=== PATIENT | male | born 1940 | race Caucasian/White ===

== ENCOUNTER → 2017-01-19 | Outpatient (CLI) | payer MEDICARE, OTHER ==
[2017-01-19 09:28] LABS: HEMATOCRIT 44.3 % (39.0-51.0); MEAN CELL VOLUME 92.3 FL (80.0-100.0); MEAN CORPUSCULAR HEMOGLOBIN 31.7 PG (27.0-34.0); MEAN CORPUSCULAR HGB CONC 34.3 % (32.0-36.0); PLATELET COUNT 155 TH/MM3 (150-450); RED BLOOD COUNT 4.81 MIL/MM3 (4.50-5.90); RED CELL DISTRIBUTION WIDTH 12.7 % (11.6-17.2); REVIEW FLAG FINAL
[2017-01-19 10:27] LABS: ALKALINE PHOSPHATASE 52 U/L (45-117); ALT (GPT) 31 U/L (12-78); ANION GAP 8 MEQ/L (5-15); AST (GOT) 21 U/L (15-37); BICARBONATE 28.1 MEQ/L (21.0-32.0); BLOOD UREA NITROGEN 16 MG/DL (7-18); CHLORIDE 105 MEQ/L (98-107); GLOMERULAR FILTRATION RATE 53 ML/MIN (>89); GLUCOSE,FASTING 100 MG/DL (74-99); HDL CHOLESTEROL 46.4 MG/DL (40.0-60.0); LDL CHOLESTEROL 48 MG/DL (0-99); LDL CHOLESTEROL DIRECT 65 MG/DL (0-99); POTASSIUM 4.7 MEQ/L (3.5-5.1); SODIUM (NA) 141 MEQ/L (136-145); TOTAL BILIRUBIN ADULT 0.5 MG/DL (0.2-1.0)
== END ==
LOC: PLAB 07:28
PROVIDERS: ATTEND Family Medicine
DX: I25.10 Atherosclerotic heart disease of native coronary artery without angina pectoris (principal); E78.2 Mixed hyperlipidemia; I10 Essential (primary) hypertension
CPT/HCPCS: 36415; 80053; 80061; 83721; 85027

== ENCOUNTER → 2017-07-22 | Outpatient (CLI) | payer MEDICARE, OTHER ==
[2017-07-22 11:01] LABS: HEMATOCRIT 44.7 % (39.0-51.0); MEAN CELL VOLUME 94.5 FL (80.0-100.0); MEAN CORPUSCULAR HEMOGLOBIN 32.3 PG (27.0-34.0); MEAN CORPUSCULAR HGB CONC 34.1 % (32.0-36.0); PLATELET COUNT 162 TH/MM3 (150-450); RED BLOOD COUNT 4.73 MIL/MM3 (4.50-5.90); RED CELL DISTRIBUTION WIDTH 12.6 % (11.6-17.2); REVIEW FLAG FINAL; WHITE BLOOD COUNT 6.1 TH/MM3 (4.0-11.0)
[2017-07-22 11:22] LABS: ANION GAP 4 MEQ/L (5-15); AST (GOT) 24 U/L (15-37); BICARBONATE 29.7 MEQ/L (21.0-32.0); BLOOD UREA NITROGEN 12 MG/DL (7-18); CHLORIDE 105 MEQ/L (98-107); GLOMERULAR FILTRATION RATE 62 ML/MIN (>89); GLUCOSE,FASTING 101 MG/DL (74-99); POTASSIUM 4.4 MEQ/L (3.5-5.1); SODIUM (NA) 139 MEQ/L (136-145)
[2017-07-22 11:34] LABS: ALKALINE PHOSPHATASE 51 U/L (45-117); ALT (GPT) 35 U/L (12-78); HDL CHOLESTEROL 54.6 MG/DL (40.0-60.0); LDL CHOLESTEROL 51 MG/DL (0-99); LDL CHOLESTEROL DIRECT 71 MG/DL (0-99); TOTAL BILIRUBIN ADULT 0.7 MG/DL (0.2-1.0)
[2017-07-22 16:15] LABS: HEMOGLOBIN A1b 0.8 %; HEMOGLOBIN Ao 85.8 %; HEMOGLOBIN LA1C 2.1 %; HEMOGLOBIN P3 3.4 %
== END ==
LOC: PLAB 07:49
PROVIDERS: ATTEND Family Medicine
DX: I25.10 Atherosclerotic heart disease of native coronary artery without angina pectoris (principal); E78.2 Mixed hyperlipidemia; I10 Essential (primary) hypertension; R73.01 Impaired fasting glucose
CPT/HCPCS: 36415; 80053; 80061; 83036; 83721; 85027

== ENCOUNTER → 2017-08-30 | Outpatient (CLI) | payer MEDICARE, OTHER ==
[~2017-08-30] MED LIST: ASPI81TA23 PO; LATA0.002 EACH EYE; MULTTAB67 PO; OCUVTAB4 PO; OMEG100046 PO; TIMO0.5S30 EACH EYE; ZOCO20TA PO
--- NOTE | 2017-08-31 14:29 | EKG ---
Date Performed: 08/30/2017 Time Performed: 11:36:39 PTAGE: 77 years EKG: Sinus rhythm NORMAL ECG NO PREVIOUS TRACING DOCTOR: Alejandra Redman Interpretating Date/Time 08/31/2017 14:25:20
== END ==
LOC: PHPRE 11:11
PROVIDERS: ATTEND Ophthalmology
DX: Z01.810 Encounter for preprocedural cardiovascular examination (principal)
CPT/HCPCS: 93005

== ENCOUNTER → 2017-09-06 | Outpatient (CLI) | payer MEDICARE, OTHER ==
--- NOTE | 2017-08-31 08:03 | MH ---
cc: HENNY PETERS M.D. [facility], DATE OF ADMISSION: 09/06/2017 ADMISSION DIAGNOSIS Cataract, left eye. HISTORY OF PRESENT ILLNESS This 77-year-old white male is coming through [facility] for the purpose of a lens extraction of the left eye with intraocular lens implant under local anesthesia. He has noticed decreasing visual acuity interfering with his daily activities and elected to have the above procedure. He also has a history of macular degeneration. His best-corrected visual acuity is 20/25 -2/+1 in the right eye and 20/100 -1 in the left eye. PAST MEDICAL HISTORY The patient does have the macular degeneration mentioned above. There is an atrophic area in the macula area of the left eye so we are not sure exactly how much help he will get with the cataract surgery but he is aware of this and would like to get as much as he can. He also has a history of cholesterol problems. PAST SURGICAL HISTORY 1. Colonoscopy. 2. Dental surgery. 3. Vasectomy. MEDICATIONS Daily medications include: 1. Ocuvite with lutein. 2. Zocor. 3. Baby aspirin. 4. Multivitamin. 5. Cinnamon. 6. Fish oil. 7. There is a history of the use of Flomax in the past. 8. Timoptic 0.5% eye drops once a day. 9. Latanoprost eye drops in each eye at bedtime. ALLERGIES The patient is allergic to SULFA. SOCIAL HISTORY He stopped smoking in 1987 and drinks a glass of wine or beer per day. FAMILY HISTORY Positive for parents with cataract and brother with glaucoma. REVIEW OF SYSTEMS HEAD: Patient denies severe headaches, dizziness or recent head injury. EARS: The patient has age-related hearing loss and tinnitus. Patient denies ear pain or discharge. NOSE: Patient denies nasal discharge, obstruction or frequent colds. MOUTH AND THROAT: Patient denies soreness of the mouth or tongue, bleeding gums, trouble swallowing, changes in voice or sore throat. NECK: Patient denies neck pain or swelling, limitation of neck movement or neck injury. CARDIOPULMONARY SYSTEM: Patient denies shortness of breath, orthopnea, chronic cough, sputum production, hemoptysis, chest pain, wheezing, palpitations or light-headedness. GI SYSTEM: Patient denies poor appetite, nausea, vomiting, abdominal pain, ulcers, hemorrhoids or change in bowel habits. SYSTEM: The patient has urinary frequency day and night due to prostate problems. Patient denies dysuria or change in urine color. NERVOUS SYSTEM: Patient denies convulsions, vertigo, stroke, numbness or weakness. PHYSICAL EXAMINATION VITAL SIGNS: Blood pressure 128/78, pulse 64, respirations 20. HEAD: Normocephalic, atraumatic. NOSE: Without rhinorrhea. THROAT: Clear. NECK: Supple. CHEST: Clear. HEART: Regular rhythm. ABDOMEN: Without tenderness. EXTREMITIES: Without edema. NEUROLOGIC: Within normal limits. MENTAL STATUS: Within normal limits. EYE EXAM: The patient's best-corrected visual acuity with correction is 20/25 -2/+1 in the right eye and 20/100 -1 in the left eye. Visual nam are full to confrontation testing. Extraocular muscle exam reveals full versions with orthophoria at distance and near. Pupils are 3 mm, equal, round, and reactive to light without afferent defect. Anterior segment examination reveals nuclear sclerotic and posterior subcapsular cataract in the left eye and nuclear sclerotic cataract in the right. Intraocular pressure is 18 in the right eye and 20.5 in the left by applanation tonometry. Dilated fundus exam revealed sharp disks with cup-to-disk ratio 0.3 in the right eye and 0.4 in the left. There are retinal pigment epithelial changes greater in the left eye than the right in the macula and a posterior vitreous detachment is present bilaterally. IMPRESSION 1. Bilateral cataracts. 2. Posterior vitreous detachment, both eyes. 3. Macular degeneration, left eye greater than right. 4. Glaucoma suspect, high-risk on medications. PLAN Lens extraction of the left eye with intraocular lens implant under local anesthesia through [facility]. 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 The patient has been cleared medically. He has been counseled as to the risks, benefits and alternatives and elected to proceed. I feel that cataract surgery will improve the quality of life and activities of daily living in this patient. Henny Peters MD [employer] RECEIVING/SUNNI /7:20 AM 7:41 AM
[~2017-09-06] VITALS: Ht 177.8 cm; Wt 79.5 kg
[~2017-09-06] MED LIST changes: +ACETYLCHOLINE CHL OPHT SOLN 1:100 2 ML VIAL ONE; +CHLORHEXIDINE GLUCONATE 2 % 1 PACK (2 CLOTHS) TOPICAL PRN; +EPINEPHrine HCL PF/SF (1:1000) 1 MG/ML AMP I-OCULAR ONE; +HYALURONIDASE/LIDOCAINE/BUPIVACAINE 5 ML SYR LEFT EYE ONE; +LACTATED RINGER'S 1000 ML IV PRN; +LIDOCAINE HCL 2% PF 5 ML VIAL ONE; +METOPROLOL TARTRATE 25 MG TAB PO PRN; +PILOCARPINE HCL 2% OPHT SOLN 15 ML BTL ONE; +POVIDONE IODINE 5% (ANTISEPSIS KIT) 4 APPLICATIONS EACH NARE PRN; +PROPARACAINE HCL 0.5% OPHT SOLN 15 ML BTL LEFT EYE ONE; +PROPOFOL 200 MG/20 ML AMP ONE; +SODIUM CHLORID 0.9% 500 ML IV PRN; +TOBRAMYCIN/DEXAMETHASONE OPTH OINT 3.5 GM TUBE ONE; +VISCOAT OPHT IRRIG SOLN 0.75 ML SYRINGE ONE
[2017-09-06 09:32] VITALS: PULSE 65
[2017-09-06] MEDS: CYCLOPENTOLATE HCL 1% OPHT SOLN 2 ML BTL LEFT EYE SCH ×4 (09:35→09:44)
[2017-09-06] MEDS: GATIFLOXACIN 0.5% OPHT SOLN 2.5 ML BTL LEFT EYE SCH ×4 (09:35→09:44)
[2017-09-06] MEDS: DICLOFENAC SOD 0.1% OPHT SOLN 2.5 ML BTL LEFT EYE SCH ×4 (09:35→09:44)
[2017-09-06] MEDS: PHENYLEPHRINE HCL 2.5% OPTH SOLN 2 ML BTL LEFT EYE SCH ×4 (09:35→09:44)
[2017-09-06] MEDS: TROPICAMIDE 1% OPHT SOLN 15 ML BTL LEFT EYE SCH ×4 (09:35→09:44)
[2017-09-06 10:29] VITALS: PULSE 66
[2017-09-06 12:55] VITALS: TEMP 98
[2017-09-06 13:15] VITALS: BP 176/93; PULSE 71; RESP 16; O2SAT 100
--- NOTE | 2017-09-06 13:31 | MP ---
cc: HENNY PETERS DATE OF SURGERY: September 06, 2017 PREOPERATIVE DIAGNOSIS: Cataract left eye. POSTOPERATIVE DIAGNOSIS: Cataract left eye. OPERATION: Extracapsular cataract extraction with posterior chamber intraocular lens implant by phacoemulsification, left eye. SURGEON: Henny Peters M.D. ANESTHESIA: Local. COMPLICATIONS: None. INDICATIONS: See history and physical previously dictated. OPERATIVE PROCEDURE: The patient had adequate retrobulbar and eyelid blocks administered in the holding area and was brought to the operating room. The left eye was prepped and draped in the usual sterile ophthalmic manner. A lid speculum was inserted in the left eye. A 4-0 silk bridle suture was placed through the conjunctiva near the superior rectus muscle and it was tagged to the drape. A fornix-based conjunctival flap was prepared spanning approximately 5 mm in width. Hemostasis was obtained with wet-field cautery. A 3.5 mm groove was made 1 mm from the limbus and dissected up to the limbus in the form of a scleral pocket incision. A stab incision was then made at the 2 o'clock position. Viscoelastic was injected into the anterior chamber. In order to maintain an adequately dilated pupil, it was elected to use iris retractors in this case. Stab incisions were made at the 1 o'clock, 3 o'clock, 5 o'clock, 8 o'clock and 10 o'clock positions. Iris retractors were then inserted through the stab incisions in the peripheral cornea and positioned to enlarge the size of the pupil. The anterior chamber was entered with a 2.75 mm keratome through the scleral pocket incision. A 360 degree continuous curvilinear capsulorrhexis was then performed. Hydrodissection was utilized to divide the nucleus into inner and outer components and to separate the cortex from the capsule. Phacoemulsification was then utilized to remove the nucleus. The outer nuclear layer was removed with irrigation and aspiration and short bursts of ultrasound as necessary. The cortex was removed with the irrigation-aspiration handpiece. The posterior capsule was polished with the capsule polisher. Viscoelastic was injected into the capsular bag. The intraocular lens was inspected and found to be in good condition. The lens utilized was an Winston, model SA60AT with a power of +19.5 diopters. The lens was inserted into the capsular bag. The five iris retractors were removed. The viscoelastic in the anterior chamber was then removed with the irrigation-aspiration hand piece. Viscoelastic was also removed from beneath the intraocular lens. The anterior chamber was filled with Miochol-E through the stab incision and pressurized. The wound was checked for leaks at this pressure and normalized pressure and there were none. The 4-0 bridle suture was removed. The conjunctival flap was brought down over the wound and secured with cautery. Pilocarpine 2% eye drops were instilled topically. The lid speculum was removed. TobraDex ophthalmic ointment was applied. The eye was double patched and shielded. The patient tolerated the procedure well and left the Operating Room in satisfactory condition. MD JOHANNY Hess/DONALD /1:00 PM /1:24 PM
== END ==
LOC: PHSDC 08:47
PROVIDERS: ATTEND Ophthalmology
DX: H26.9 Unspecified cataract (principal); H35.30 Unspecified macular degeneration
CPT/HCPCS: 00142; 66984; J0171; V2632

== ENCOUNTER → 2017-10-18 | Day surgery (SDC) | payer MEDICARE, OTHER ==
--- NOTE | 2017-10-12 15:25 | MH ---
cc: HENNY CARRIZALES M.D. [facility], DATE OF ADMISSION 10/18/2017 ADMISSION DIAGNOSIS Cataract, right eye. HISTORY OF PRESENT ILLNESS This 77-year-old white male is coming through [facility] for the purpose of a lens extraction of the right eye with intraocular lens implant under local anesthesia. He has noted decreasing visual acuity interfering with his daily activities and elected to have the above procedure. He had a similar procedure on the left eye in August 2017 and did well postoperatively and now is requesting cataract surgery for his right eye. His best-corrected visual acuity is 20/40 in the right eye in room light and is 20/30 in the left. PAST MEDICAL HISTORY The patient has a history of cholesterol problems and macular degeneration, greater in the left eye than the right. PAST SURGICAL HISTORY The surgical history is that of colonoscopy, dental surgery, vasectomy, and the above-mentioned cataract surgery on the left eye. MEDICATIONS Daily medications include: 1. Ocuvite with lutein. 2. Zocor. 3. Baby aspirin. 4. Multivitamin. 5. Cinnamon. 6. Fish oil. 7. History of Flomax use in the past. ALLERGIES He is allergic to SULFA. SOCIAL HISTORY The patient stopped smoking in 1987. He has a glass of wine or beer each day. FAMILY HISTORY Positive for parents with cataracts and brother with glaucoma. REVIEW OF SYSTEMS HEAD: Patient denies severe headaches, dizziness or recent head injury. EARS: The patient has age-related hearing loss and tinnitus. NOSE: Patient denies nasal discharge, obstruction or frequent colds. MOUTH AND THROAT: Patient denies soreness of the mouth or tongue, bleeding gums, trouble swallowing, changes in voice or sore throat. NECK: Patient denies neck pain or swelling, limitation of neck movement or neck injury. CARDIOPULMONARY SYSTEM: Patient denies shortness of breath, orthopnea, chronic cough, sputum production, hemoptysis, chest pain, wheezing, palpitations or light-headedness. GI SYSTEM: Patient denies poor appetite, nausea, vomiting, abdominal pain, ulcers, hemorrhoids or change in bowel habits. SYSTEM: The patient has prostate problems causing urinary frequency day and night. Denies dysuria or change in urine color. NERVOUS SYSTEM: Patient denies convulsions, vertigo, stroke, numbness or weakness. PHYSICAL EXAMINATION VITAL SIGNS: Blood pressure 136/70, pulse 76, respirations 16. HEAD: Normocephalic, atraumatic. NOSE: Without rhinorrhea. THROAT: Clear. NECK: Supple. CHEST: Clear. HEART: Regular rhythm. ABDOMEN: Without tenderness. EXTREMITIES: Without edema. NEUROLOGIC: Within normal limits. MENTAL STATUS: Within normal limits. EYE EXAM: The patient's best-corrected visual acuity is 20/40 -1/+1 in room light in the right eye, and 20/30 -2 in the left. Visual nam are full to confrontation testing. Extraocular muscle exam reveals full versions with orthophoria at distance and near. Pupils are 3 mm, equal, round, reactive to light without afferent defect. Anterior segment examination reveals nuclear sclerotic cataract in the right eye and posterior chamber intraocular lens in place in the left. The intraocular pressure is 16 in the right eye and 20 in the left eye on his glaucoma medications which include Latanoprost eyed drops at bedtime and timolol eye drops twice a day in both eyes. Dilated fundus exam reveals sharp disks with cup-to-disk ratio of 0.3 in the right eye and 0.4 in the left with peripapillary atrophy. There are retinal pigment epithelial changes greater in the left eye than the right. An atrophic area is also noted in the left eye inferotemporal to the fovea. A posterior vitreous detachment is present bilaterally. IMPRESSION 1. Cataract, right eye. 2. Pseudophakia, left eye. 3. Macular degeneration, left eye greater than right. 4. Glaucoma suspect - high-risk on medications for high intraocular pressures. PLAN Lens extraction of the right eye with intraocular lens implant under local anesthesia through [facility]. The patient has been cleared medically. He has been counseled as to the risks, benefits and alternatives and elected to proceed. I feel that cataract surgery will improve the quality of life and activities of daily living in this patient. MD JOHANNY Hess/BT /2:15 PM /3:02 PM
[~2017-10-18] VITALS: Ht 177.8 cm; Wt 79.5 kg
[~2017-10-18] MED LIST changes: +CYCLOPENTOLATE HCL 1% OPHT SOLN 2 ML BTL ONE; +CYCLOPENTOLATE HCL 1% OPHT SOLN 2 ML BTL RIGHT EYE SCH; +DICLOFENAC SOD 0.1% OPHT SOLN 2.5 ML BTL ONE; +DICLOFENAC SOD 0.1% OPHT SOLN 2.5 ML BTL RIGHT EYE SCH; +GATIFLOXACIN 0.5% OPHT SOLN 2.5 ML BTL ONE; +GATIFLOXACIN 0.5% OPHT SOLN 2.5 ML BTL RIGHT EYE SCH; -HYALURONIDASE/LIDOCAINE/BUPIVACAINE 5 ML SYR LEFT EYE ONE; +HYALURONIDASE/LIDOCAINE/BUPIVACAINE 5 ML SYR RIGHT EYE ONE; -LIDOCAINE HCL 2% PF 5 ML VIAL ONE; +PHENYLEPHRINE HCL 2.5% OPTH SOLN 2 ML BTL ONE; +PHENYLEPHRINE HCL 2.5% OPTH SOLN 2 ML BTL RIGHT EYE SCH; -PROPARACAINE HCL 0.5% OPHT SOLN 15 ML BTL LEFT EYE ONE; +PROPARACAINE HCL 0.5% OPHT SOLN 15 ML BTL ONE; +PROPARACAINE HCL 0.5% OPHT SOLN 15 ML BTL RIGHT EYE ONE; +TETRACAINE 0.5% OPTH SOLN 4 ML BTL ONE; +TROPICAMIDE 1% OPHT SOLN 15 ML BTL ONE; +TROPICAMIDE 1% OPHT SOLN 15 ML BTL RIGHT EYE SCH
[2017-10-18 06:48] VITALS: PULSE 61
[2017-10-18] MEDS: CYCLOPENTOLATE HCL 1% OPHT SOLN 2 ML BTL RIGHT EYE SCH ×4 (06:50→06:59)
[2017-10-18] MEDS: PHENYLEPHRINE HCL 2.5% OPTH SOLN 2 ML BTL RIGHT EYE SCH ×4 (06:50→06:59)
[2017-10-18] MEDS: GATIFLOXACIN 0.5% OPHT SOLN 2.5 ML BTL RIGHT EYE SCH ×4 (06:50→06:59)
[2017-10-18] MEDS: TROPICAMIDE 1% OPHT SOLN 15 ML BTL RIGHT EYE SCH ×4 (06:50→06:59)
[2017-10-18] MEDS: DICLOFENAC SOD 0.1% OPHT SOLN 2.5 ML BTL RIGHT EYE SCH ×4 (06:50→06:59)
[2017-10-18 07:13] VITALS: PULSE 60
[2017-10-18 07:21] VITALS: PULSE 59
[2017-10-18 08:42] VITALS: TEMP 97.5
[2017-10-18 09:03] VITALS: BP 139/80; PULSE 54; RESP 14; O2SAT 97
--- NOTE | 2017-10-19 09:13 | MP ---
cc: HENNY PETERS DATE OF SURGERY 10/18/2017 PREOPERATIVE DIAGNOSIS Cataract right eye. POSTOPERATIVE DIAGNOSIS Cataract right eye. OPERATION Extracapsular cataract extraction with posterior chamber intraocular lens implant by phacoemulsification, right eye. SURGEON Henny Peters M.D. ANESTHESIA Local COMPLICATIONS None INDICATIONS See history and physical previously dictated. OPERATIVE PROCEDURE The patient had adequate retrobulbar and eyelid blocks administered in the holding area and was brought to the operating room. The right eye was prepped and draped in the usual sterile ophthalmic manner. A lid speculum was inserted in the right eye. A 4-0 silk bridle suture was placed through the conjunctiva near the superior rectus muscle and it was tagged to the drape. A fornix-based conjunctival flap was prepared spanning approximately 5 mm in width. Hemostasis was obtained with wet-field cautery. A 3.5 mm groove was made 1 mm from the limbus and dissected up to the limbus in the form of a scleral pocket incision. A stab incision was then made at the 2 o'clock position. Viscoelastic was injected into the anterior chamber. In order to maintain an adequately dilated pupil, it was elected to use iris retractors in this case. Stab incisions were made at the 1 o'clock, 3 o'clock, 5 o'clock, 8 o'clock and 10 o'clock positions. Iris retractors were then inserted through the stab incisions in the peripheral cornea and positioned to enlarge the size of the pupil. The anterior chamber was entered with a 3.0 mm keratome through the scleral pocket incision. A 360 degree continuous curvilinear capsulorrhexis was then performed. Hydrodissection was utilized to divide the nucleus into inner and outer components and to separate the cortex from the capsule. Phacoemulsification was then utilized to remove the nucleus. The outer nuclear layer was removed with irrigation and aspiration and short bursts of ultrasound as necessary. The cortex was removed with the irrigation-aspiration handpiece. The posterior capsule was polished with the capsule polisher. Viscoelastic was injected into the capsular bag. The intraocular lens was inspected and found to be in good condition. The lens utilized was a Winston, model SA60AT with a power of +20 diopters. The lens was inserted into the capsular bag. The five iris retractors were removed. The viscoelastic in the anterior chamber was then removed with the irrigation-aspiration hand piece. Viscoelastic was also removed from beneath the intraocular lens. The anterior chamber was filled with Miochol-E through the stab incision and pressurized. The wound was closed with one interrupted 10-0 nylon suture. The wound was checked for leaks and there were none. The 4-0 bridle suture was removed. The conjunctival flap was brought down over the wound and secured with cautery. Pilocarpine 2% eye drops were instilled topically. The lid speculum was removed. TobraDex ophthalmic ointment was applied. The eye was double patched and shielded. The patient tolerated the procedure well and left the Operating Room in satisfactory condition. MD JOHANNY Hess/DYAN /8:49 AM /9:07 AM
== END | disposition home or self-care (01) ==
LOC: PHSDC 06:10
PROVIDERS: ATTEND Ophthalmology
DX: H25.11 Age-related nuclear cataract, right eye (principal); H57.09 Other anomalies of pupillary function; H40.009 Preglaucoma, unspecified, unspecified eye; H35.30 Unspecified macular degeneration; Z96.1 Presence of intraocular lens; Z87.891 Personal history of nicotine dependence
CPT/HCPCS: 00142; 66982; J0171; J7040; V2632

== ENCOUNTER → 2018-01-26 | Outpatient (CLI) | payer MEDICARE, OTHER ==
[~2018-01-26] MED LIST changes: -ACETYLCHOLINE CHL OPHT SOLN 1:100 2 ML VIAL ONE; -CHLORHEXIDINE GLUCONATE 2 % 1 PACK (2 CLOTHS) TOPICAL PRN; -CYCLOPENTOLATE HCL 1% OPHT SOLN 2 ML BTL ONE; -CYCLOPENTOLATE HCL 1% OPHT SOLN 2 ML BTL RIGHT EYE SCH; -DICLOFENAC SOD 0.1% OPHT SOLN 2.5 ML BTL ONE; -DICLOFENAC SOD 0.1% OPHT SOLN 2.5 ML BTL RIGHT EYE SCH; -EPINEPHrine HCL PF/SF (1:1000) 1 MG/ML AMP I-OCULAR ONE; -GATIFLOXACIN 0.5% OPHT SOLN 2.5 ML BTL ONE; -GATIFLOXACIN 0.5% OPHT SOLN 2.5 ML BTL RIGHT EYE SCH; -HYALURONIDASE/LIDOCAINE/BUPIVACAINE 5 ML SYR RIGHT EYE ONE; -LACTATED RINGER'S 1000 ML IV PRN; -METOPROLOL TARTRATE 25 MG TAB PO PRN; -PHENYLEPHRINE HCL 2.5% OPTH SOLN 2 ML BTL ONE; -PHENYLEPHRINE HCL 2.5% OPTH SOLN 2 ML BTL RIGHT EYE SCH; -PILOCARPINE HCL 2% OPHT SOLN 15 ML BTL ONE; -POVIDONE IODINE 5% (ANTISEPSIS KIT) 4 APPLICATIONS EACH NARE PRN; -PROPARACAINE HCL 0.5% OPHT SOLN 15 ML BTL ONE; -PROPARACAINE HCL 0.5% OPHT SOLN 15 ML BTL RIGHT EYE ONE; -PROPOFOL 200 MG/20 ML AMP ONE; -SODIUM CHLORID 0.9% 500 ML IV PRN; -TETRACAINE 0.5% OPTH SOLN 4 ML BTL ONE; -TOBRAMYCIN/DEXAMETHASONE OPTH OINT 3.5 GM TUBE ONE; -TROPICAMIDE 1% OPHT SOLN 15 ML BTL ONE; -TROPICAMIDE 1% OPHT SOLN 15 ML BTL RIGHT EYE SCH; -VISCOAT OPHT IRRIG SOLN 0.75 ML SYRINGE ONE
[2018-01-26 11:11] LABS: HEMATOCRIT 44.1 % (39.0-51.0); MEAN CELL VOLUME 93.6 FL (80.0-100.0); MEAN CORPUSCULAR HEMOGLOBIN 31.9 PG (27.0-34.0); MEAN CORPUSCULAR HGB CONC 34.1 % (32.0-36.0); MEAN PLATELET VOLUME 8.2 FL (7.0-11.0); PLATELET COUNT 166 TH/MM3 (150-450); RED CELL DISTRIBUTION WIDTH 12.9 % (11.6-17.2); WHITE BLOOD COUNT 5.6 TH/MM3 (4.0-11.0)
[2018-01-26 11:27] LABS: ALBUMIN 4.1 GM/DL (3.4-5.0); AST (GOT) 24 U/L (15-37); BICARBONATE 28.3 MEQ/L (21.0-32.0); BLOOD UREA NITROGEN 13 MG/DL (7-18); CALCIUM 8.9 MG/DL (8.5-10.1); CHLORIDE 105 MEQ/L (98-107); CHOLESTEROL 148 MG/DL (120-200); CREATININE 1.32 MG/DL (0.60-1.30); GLOMERULAR FILTRATION RATE 52 ML/MIN (>89); SODIUM (NA) 141 MEQ/L (136-145)
[2018-01-26 11:37] LABS: ALKALINE PHOSPHATASE 47 U/L (45-117); ALT (GPT) 31 U/L (12-78); CHOLESTEROL/ HDL RATIO 2.56 RATIO; GLUCOSE,FASTING 98 MG/DL (74-99); HDL CHOLESTEROL 57.6 MG/DL (40.0-60.0); LDL CHOLESTEROL 51 MG/DL (0-99); LDL CHOLESTEROL DIRECT 76 MG/DL (0-99); TOTAL BILIRUBIN ADULT 0.9 MG/DL (0.2-1.0); TOTAL PROTEIN 7.5 GM/DL (6.4-8.2); TRIGLYCERIDES 198 MG/DL (42-150)
[2018-01-26 15:05] LABS: HEMOGLOBIN A1C 5.4 % (4.3-6.0)
== END ==
LOC: PLAB 07:39
PROVIDERS: ATTEND Family Medicine
DX: I25.10 Atherosclerotic heart disease of native coronary artery without angina pectoris (principal); E78.2 Mixed hyperlipidemia; I10 Essential (primary) hypertension; R73.01 Impaired fasting glucose
CPT/HCPCS: 36415; 80053; 80061; 83036; 83721; 85027